=== PATIENT | male | born 1955 | race Caucasian/White ===

== ENCOUNTER 2016-04-13 09:19 | Day surgery (SDC) | payer OTHER ==
[~2016-04-13] VITALS: Ht 167.6 cm; Wt 78.1 kg
[~2016-04-13 09:19] MED LIST: AMIO200T2 PO; ASPI81TA3 PO; LANT3I SC; METO25TA4 PO
[2016-04-13] MEDS ORDERED: CHOL100062 PO (10:06)
[2016-04-13 10:09] VITALS: Ht 167.6 cm; Wt 78.1 kg
[2016-04-13 10:34] VITALS: BP 154/75; PULSE 77; RESP 16
[2016-04-13] MEDS ORDERED: FENTAnyl 50 MCG/ML VIAL ONE (11:18)
[2016-04-13] MEDS ORDERED: MIDAZOLAM 1 MG/ML 2 ML INJ ONE ×2 (11:19)
[2016-04-13 11:30] VITALS: BP 121/64; RESP 20
--- NOTE | 2016-04-14 08:26 | GILP ---
DATE OF PROCEDURE: NAME OF PROCEDURES: Colonoscopy and biopsy. SURGEON: Neelima Stewart MD PREOPERATIVE DIAGNOSIS: Screening colonoscopy. POSTOPERATIVE DIAGNOSES 1. Colonoscopy all the way to the cecum. 2. Small rectal polyp was removed. 3. Internal hemorrhoids. INDICATION FOR THE PROCEDURE: Mr. Kael Gasca is a 60-year-old male patient who was scheduled for id reening colonoscopy. The procedure and possible complications were well explained to the patient, he understood and conse nted to the procedure. DESCRIPTION OF PROCEDURE: Under the influence of fentanyl and Versed, the colonoscope was carefully introduced in the rectum and under direct vision, it was advanced all the way to the cecum. FINDINGS: The patient had a small rectal polyp and it was removed using the biopsy forceps. He was noted to have internal hemorrhoids. He tolerated the procedure very well and there was no complication from the procedure. At the end o f the procedure, he was awake with stable vital signs and he was discharged home to the care of his family. IMPRESSION: 1. Colonoscopy all the way to the cecum. 2. Small rectal polyp was removed. 3. Internal hemorrhoids. PLAN: Screening colonoscopy in 10 years. Dictated By: NEELIMA BEAN/ESTEFANY Conf#: [id number] DID#: [id number]
== END 2016-04-13 12:34 | disposition home or self-care (01) ==
LOC: GIL 09:19
PROVIDERS: ATTEND Internal Medicine Gastroenterology
DX: Z12.11 Encounter for screening for malignant neoplasm of colon (principal); K62.1 Rectal polyp; K64.8 Other hemorrhoids; E11.9 Type 2 diabetes mellitus without complications
CPT/HCPCS: 45380; 88305; J2250; J3010; Z7610

== ENCOUNTER 2017-05-08 11:12 | Day surgery (SDC) | END 2017-05-08 16:56 | disposition home or self-care (01) ==